=== PATIENT | female | born 1970 | race Caucasian/White ===

== ENCOUNTER 2023-09-17 11:28 | Outpatient (REF) | payer BC, SELFPAY ==
[2023-09-17 15:14] LABS: Anion Gap 7.7 mmol/L (3-11); BUN 14 mg/dL (7-18); CO2 28.3 mmol/L (21.0-32.0); CREATININE 0.7 mg/dL (0.55-1.02); Calculated LDL 188 mg/dL (<100); Chloride 106 mmol/L (98-107); Cholesterol 294 mg/dL (<200); Estimated GFR 102.07 (mL/min/1.73m2); Glucose 97 mg/dL (74-106); HDL Cholesterol 90 mg/dL (40-60); Potassium 4.4 mmol/L (3.5-5.1); Sodium 142 mmol/L (136-145); Triglyceride 81 mg/dL (<150)
== END 2023-09-17 11:29 | disposition home or self-care (01) ==
LOC: NCHCN 11:28
PROVIDERS: PCP Family Medicine; Visit Provider Nurse Practitioner Family
DX: Z00.00 Encounter for general adult medical examination without abnormal findings (principal); E78.2 Mixed hyperlipidemia
CPT/HCPCS: 80048; 80061

== ENCOUNTER 2025-05-18 11:42 | Outpatient (REF) | payer OTHER, SELFPAY ==
[2025-05-18 15:00] LABS: ALT 24 U/L (14-59); AST 18 U/L (15-37); Albumin 4.1 g/dL (3.4-5.0); Alkaline Phosphatase 112 U/L (46-116); Anion Gap 10.9 mmol/L (3-11); BUN 17 mg/dL (7-18); Bilirubin, Total 0.5 mg/dL (0.2-1.0); CO2 27.1 mmol/L (21.0-32.0); Calcium 9.6 mg/dL (8.5-10.1); Calculated LDL 199 mg/dL (<100); Chloride 103 mmol/L (98-107); Cholesterol 314 mg/dL (<200); Estimated GFR 100.81 (mL/min/1.73m2); Glucose 75 mg/dL (74-106); HDL Cholesterol 88 mg/dL (>or=50); Potassium 4.3 mmol/L (3.5-5.1); Sodium 141 mmol/L (136-145); Total Protein 7.9 g/dL (6.4-8.2); Triglyceride 139 mg/dL (<150)
[2025-05-19 10:51] LABS: HIV-1/2 Ag & Ab Screen Negative (Negative)
[2025-05-19 10:55] LABS: Hepatitis C Ab w Rflx HCV PCR Negative (Negative)
[2025-05-19 16:46] LABS: Apolipoprotein B, S 134 mg/dL
== END 2025-05-18 11:43 | disposition home or self-care (01) ==
LOC: NCHCN 11:42
PROVIDERS: PCP Family Medicine; Visit Provider Nurse Practitioner Family
DX: Z11.3 Encounter for screening for infections with a predominantly sexual mode of transmission (principal); Z00.00 Encounter for general adult medical examination without abnormal findings; Z13.220 Encounter for screening for lipoid disorders
CPT/HCPCS: 80053; 80061; 82172; 86803; 87389